=== PATIENT | female | born 1975 | race Caucasian/White ===

== ENCOUNTER → 2017-02-18 | Outpatient (CLI) | payer BC ==
[~2017-02-18] MED LIST: CARI350T OR; CELE100C; CODE30TA OR; FIORICET OR; LYRI150C; TIZA4TAB OR
--- NOTE | 2017-02-27 02:45 | REP ---
Clinical: Spondylosis. Technique: AP, lateral, flexion/extension, bilateral oblique, and open mouth views of the cervical spine. Findings: Alignment and lordosis maintained. No acute fracture / compression injury or subluxation. A small free osteophyte fragment at the C5-6 level appears chronic. Mild age-related changes include endplate sclerosis with minimal disc space narrowing at the C5-6 and C6-7 levels. Oblique views demonstrate patent neural foramen. Open mouth view demonstrates normal C1-C2 articulation and odontoid process. Impression: Mild age-related degenerative changes as described above. If the patient remains symptomatic consider MRI for further investigation. Signed by Galileo Galvan MD 02/27/2017 02:36 A
== END ==
LOC: M WUC 09:59
PROVIDERS: ATTEND Physician Assistant
DX: S16.1XXA Strain of muscle, fascia and tendon at neck level, initial encounter (principal); Y92.9 Unspecified place or not applicable; Y93.9 Activity, unspecified; Y99.8 Other external cause status; X58.XXXA Exposure to other specified factors, initial encounter

== ENCOUNTER → 2017-05-23 | Outpatient (CLI) | payer BC ==
--- NOTE | 2017-05-23 15:24 | REPMRS ---
Patient History The patient states she had a clinical breast exam in April 2017.Family history of breast cancer in maternal grandmother at age 50 or over and breast cancer in paternal grandmother. Digital Mammo Screening Bilat: May 23, 2017 - Exam #: [id number] Bilateral CC and MLO view(s) were taken. Technologist: Samra Mark, Technologist Prior study comparison: April 26, 2016, bilateral digital mammo screening bilat performed at [facility]. April 27, 2015, bilateral digital mammo screening bilat performed at [facility]. FINDINGS: There are scattered fibroglandular densities. There has been no change in the appearance of the mammogram from the prior studies. There is a mild amount of residual fibroglandular tissue which is fairly symmetric. There is no interval development of dominant mass, architectural distortion, or clustered microcalcification suggestive of malignancy. ASSESSMENT: BI-RADS/ACR category 1 mammogram. Negative. Recommendation Routine screening mammogram in 1 year (for women over age 40). This mammogram was interpreted with the aid of an FDA-approved computer-aided dectection system. Electronically Signed By: Wellington Pacheco MD 05/23/17 [id number]
== END ==
LOC: M RAD 12:58
PROVIDERS: ATTEND Registered Nurse
DX: Z12.31 Encounter for screening mammogram for malignant neoplasm of breast (principal); Z80.3 Family history of malignant neoplasm of breast

== ENCOUNTER → 2017-09-23 | Outpatient (REF) | payer BC | LOC: M LAB REF 14:26 | PROVIDERS: ATTEND Physician Assistant | DX: J02.9 Acute pharyngitis, unspecified (principal) ==

== ENCOUNTER → 2018-05-26 | Outpatient (CLI) | payer OTHER, BC, SELFPAY | LOC: M RAD 08:50 | DX: Z12.31 Encounter for screening mammogram for malignant neoplasm of breast (principal) | CPT/HCPCS: 77067 ==

== ENCOUNTER → 2019-05-26 | Outpatient (REF) | payer OTHER ==
[2019-05-27 11:29] LABS: RUBELLA IgG QUALITATIVE IMMUNE (IMMUNE)
[2019-05-28 14:08] LABS: MUMPS VIRUS IgG ANTIBODY 9.8 AU/mL (Immune >10.9); RUBEOLA IgG ANTIBODY 52.2 AU/mL (Immune >29.9)
== END ==
LOC: M LAB REF 16:59
PROVIDERS: ATTEND Internal Medicine
DX: Z02.1 Encounter for pre-employment examination (principal)

== ENCOUNTER → 2019-06-24 | Outpatient (CLI) | payer OTHER ==
--- NOTE | 2019-06-24 14:42 | REPMRS ---
Patient History The patient states she had a clinical breast exam in 2018. Family history of breast cancer at age 50 or over in maternal grandmother, breast cancer in paternal grandmother. Digital Mammo Screening Bilat: June 24, 2019 - Exam #: [id number] Bilateral CC and MLO view(s) were taken. Technologist: Lou Aburto, Technologist Prior study comparison: May 26, 2018, bilateral digital mammo screening bilat performed at [facility]. May 23, 2017, bilateral digital mammo screening bilat performed at [facility]. April 26, 2016, bilateral digital mammo screening bilat performed at [facility]. FINDINGS: There are scattered fibroglandular densities. There has been no change in the appearance of the mammogram from the prior studies. There is a mild amount of scattered fibroglandular density which is fairly symmetric. There is no interval development of dominant mass, architectural distortion, or grouped microcalcification suggestive of malignancy. 3-D tomosynthesis shows no additional findings. Assessment: BI-RADS/ACR category 1 mammogram. Negative Mammogram. Recommendation Routine screening mammogram of both breasts in 1 year (for women over age 40). This patient's Lifetime Breast Cancer Risk is estimated at 15.8 %. This mammogram was interpreted with the aid of an FDA-approved computer-aided dectection system. Electronically Signed By: Trace Eason MD 06/24/19 [id number]
== END ==
LOC: M RAD 12:51
PROVIDERS: ATTEND Nurse Practitioner Family
DX: Z12.31 Encounter for screening mammogram for malignant neoplasm of breast (principal)

== ENCOUNTER → 2019-12-10 | Outpatient (REF) | payer OTHER ==
[2019-12-10 22:16] LABS: INFLUENZA A AMPLIFICATION POSITIVE (NEGATIVE); INFLUENZA B AMPLIFICATION NEGATIVE (NEGATIVE)
== END ==
LOC: M LAB REF 08:38
PROVIDERS: ATTEND Physician Assistant
DX: J11.1 Influenza due to unidentified influenza virus with other respiratory manifestations (principal)

== ENCOUNTER → 2020-08-09 | Outpatient (CLI) | payer OTHER ==
--- NOTE | 2020-08-09 11:15 | REPMRS ---
Patient History The patient states she had a clinical breast exam in July 2020. Family history of breast cancer at age 50 or over in maternal grandmother, breast cancer in paternal grandmother. Took hormonal contraceptives for 5 years. Digital Woman Screen Mammo: August 09, 2020 - Exam #: [id number] Bilateral CC and MLO view(s) were taken. Technologist: Lou Aburto, Technologist Prior study comparison: June 24, 2019, bilateral digital mammo screening bilat, performed at [facility]. May 26, 2018, bilateral digital mammo screening bilat, performed at [facility]. May 23, 2017, bilateral digital mammo screening bilat, performed at [facility]. FINDINGS: There are scattered fibroglandular densities. The Volpara volumetric breast density category is:B. There has been no change in the appearance of the mammogram from the prior studies. There is a mild amount of scattered fibroglandular density which is fairly symmetric. There is no interval development of dominant mass, architectural distortion, or grouped microcalcification suggestive of malignancy. 3-D tomosynthesis shows no additional findings. Assessment: BI-RADS/ACR category 1 mammogram. Negative Mammogram. Recommendation Routine screening mammogram of both breasts in 1 year (for women over age 40). This patient's Lifetime Breast Cancer Risk is estimated at 15.6 %. This mammogram was interpreted with the aid of an FDA-approved computer-aided dectection system. Electronically Signed By: Trace Eason MD 08/09/20 [id number]
== END ==
LOC: M WHC 10:06
PROVIDERS: ATTEND Nurse Practitioner Family
DX: Z12.31 Encounter for screening mammogram for malignant neoplasm of breast (principal)

== ENCOUNTER → 2020-10-04 | Outpatient (CLI) | payer SELFPAY | LOC: M LABSMTC 13:51 | PROVIDERS: ATTEND Pediatrics | DX: Z11.59 Encounter for screening for other viral diseases (principal) ==

== ENCOUNTER → 2021-08-10 | Outpatient (CLI) | payer OTHER ==
--- NOTE | 2021-08-10 08:50 | REPMRS ---
Patient History The patient states she has not had a clinical breast exam in over a year. Family history of breast cancer at age 50 or over in maternal grandmother, breast cancer in paternal grandmother. Took hormonal contraceptives for 5 years. Tomosynthesis is performed. Volpara breast density is b. JagdishMyra lifetime risk of breast cancer 15.4%. No breast complaints today Patient signed the MRS sheet 1st vaccine 12/23/20-left arm-Moderna 2nd vaccine 01/20/21-left arm Priors on PACS Patient Identification Verified Patient denied Digital Woman Screen Mammo: August 10, 2021 - Exam #: [id number] Bilateral CC and MLO view(s) were taken. Technologist: Ember Bautista, Miguel Angelologist Prior study comparison: August 09, 2020, bilateral digital woman screen mammo performed at [facility]. June 24, 2019, bilateral digital mammo screening bilat, performed at [facility]. FINDINGS: The breast tissue is heterogeneously dense. This may lower the sensitivity of mammography. There has been no change in the appearance of the mammogram from the prior studies. There is a moderate amount of residual fibroglandular tissue which is fairly symmetric. There is no interval development of dominant mass, areas of architectural distortion, or clustered microcalcification typical of malignancy. Assessment: BI-RADS/ACR category 1 mammogram. Negative Mammogram. Recommendation Routine screening mammogram in 1 year (for women over age 40). This mammogram was interpreted with the aid of an FDA-approved computer-aided dectection system. Electronically Signed By: Wellington Pacheco MD 08/10/21 [id number]
== END ==
LOC: M WHC 07:12
PROVIDERS: ATTEND Internal Medicine
DX: Z12.31 Encounter for screening mammogram for malignant neoplasm of breast (principal); Z80.3 Family history of malignant neoplasm of breast; Z92.0 Personal history of contraception

== ENCOUNTER → 2021-09-29 | Outpatient (REF) | payer OTHER | LOC: M LAB REF 12:06 | PROVIDERS: ATTEND Physician Assistant | DX: R05.9 Cough, unspecified (principal); R50.9 Fever, unspecified ==

== ENCOUNTER 2022-01-21 12:30 | Emergency (ER) | payer OTHER ==
[~2022-01-21] VITALS: Ht 149.9 cm; Wt 73.3 kg
[2022-01-21 12:32] VITALS: BP 136/75
[2022-01-21] MEDS ORDERED: HYDR-643 (12:41)
[2022-01-21] MEDS ORDERED: NAPR-885 (12:41)
[2022-01-21] MEDS ORDERED: OMEP40CA5 (12:41)
[2022-01-21] MEDS ORDERED: NEUR300C PO (13:26)
[2022-01-21] MEDS ORDERED: ACET-897 PO (13:26)
== END 2022-01-21 13:58 | disposition home or self-care (01) ==
LOC: M ED 13:41
DX: M54.41 Lumbago with sciatica, right side (principal); F33.9 Major depressive disorder, recurrent, unspecified; F41.9 Anxiety disorder, unspecified; K21.9 Gastro-esophageal reflux disease without esophagitis; Z79.899 Other long term (current) drug therapy

== ENCOUNTER → 2022-07-11 | Outpatient (REF) | payer OTHER ==
[~2022-07-11] MED LIST changes: +ACET-897 PO; +HYDR-643; +NAPR-885; +NEUR300C PO; +OMEP40CA5
[2022-07-11 21:56] LABS: APPEARANCE, URINE MANUAL CLEAR (CLEAR); COLOR, URINE MANUAL YELLOW (YELLOW); PH,URINE MAN 5.5 UNITS (5.0 - 7.0)
[2022-07-11 21:57] LABS: BILIRUBIN, URINE MANUAL NEGATIVE (NEGATIVE); BLOOD URINE MANUAL NEGATIVE (NEGATIVE); GLUCOSE, URINE (UA) MANUAL NEGATIVE (NEGATIVE); KETONE, URINE MANUAL NEGATIVE (NEGATIVE); LEUKOCYTE ESTERASE, URINE MAN NEGATIVE (NEGATIVE); NITRITE, URINE MANUAL NEGATIVE (NEGATIVE); PROTEIN, URINE MANUAL NEGATIVE (NEGATIVE); UROBILINOGEN, URINE MANUAL NORMAL (NORMAL)
== END ==
LOC: M LAB REF 21:26
PROVIDERS: ATTEND Physician Assistant
DX: N39.0 Urinary tract infection, site not specified (principal)

== ENCOUNTER → 2022-08-13 | Outpatient (CLI) | payer OTHER | LOC: M WHC 07:41 | PROVIDERS: ATTEND Internal Medicine | DX: Z12.31 Encounter for screening mammogram for malignant neoplasm of breast (principal) ==

== ENCOUNTER → 2022-11-29 | Outpatient (CLI) | payer BC, MEDICAID, OTHER ==
[~2022-11-29] MED LIST changes: +CETI-24; +GABA-282
== END ==
LOC: M LABSMTC 09:45
PROVIDERS: ATTEND Anesthesiology
DX: Z01.812 Encounter for preprocedural laboratory examination (principal); Z20.822 Contact with and (suspected) exposure to COVID-19

== ENCOUNTER 2022-12-04 06:55 | Day surgery (SDC) | payer OTHER ==
[~2022-12-04] VITALS: Ht 149.9 cm; Wt 75.7 kg
[~2022-12-04 06:55] MED LIST changes: +NS 1,000 ML IV ONE
[2022-12-04] MEDS ORDERED: propofoL 200 MG/20 ML VIAL As Ordered ONE (08:42)
[2022-12-04] MEDS ORDERED: LIDOCAINE 2% 100MG/5ML SDV (FOR ANES.) As Ordered ONE (08:42)
[2022-12-04 09:28] VITALS: BP 121/73
== END 2022-12-04 10:02 | disposition home or self-care (01) ==
LOC: M OPP 06:55
PROVIDERS: ATTEND Internal Medicine Gastroenterology
DX: Z12.11 Encounter for screening for malignant neoplasm of colon (principal); Z80.0 Family history of malignant neoplasm of digestive organs; K63.5 Polyp of colon; K64.4 Residual hemorrhoidal skin tags; K64.8 Other hemorrhoids; F41.9 Anxiety disorder, unspecified; K50.90 Crohn's disease, unspecified, without complications; Z79.1 Long term (current) use of non-steroidal anti-inflammatories (NSAID); Z79.891 Long term (current) use of opiate analgesic; Z79.899 Other long term (current) drug therapy; Z80.3 Family history of malignant neoplasm of breast

== ENCOUNTER → 2023-01-26 | Outpatient (CLI) | payer OTHER ==
[~2023-01-26] MED LIST changes: -NS 1,000 ML IV ONE
== END ==
LOC: M EKG 13:55
PROVIDERS: ATTEND Physician Assistant Medical
DX: R00.2 Palpitations (principal)

== ENCOUNTER → 2023-07-17 | Outpatient (REF) | payer OTHER | LOC: M LAB REF 22:17 | PROVIDERS: ATTEND Physician Assistant | DX: B34.9 Viral infection, unspecified (principal) ==

== ENCOUNTER → 2024-07-14 | Outpatient (CLI) | payer OTHER | LOC: M WHC 13:53 | PROVIDERS: ATTEND Internal Medicine | DX: Z12.31 Encounter for screening mammogram for malignant neoplasm of breast (principal) ==

== ENCOUNTER → 2024-07-24 | Outpatient (CLI) | payer OTHER | LOC: M SOG 08:18 | PROVIDERS: ATTEND Physician Assistant | DX: M19.031 Primary osteoarthritis, right wrist (principal) ==

== ENCOUNTER → 2024-08-11 | Outpatient (CLI) | payer OTHER ==
[~2024-08-11] MED LIST changes: +GABA-1172; -GABA-282
== END ==
LOC: M RAD 06:07
PROVIDERS: ATTEND Internal Medicine
DX: R74.8 Abnormal levels of other serum enzymes (principal); K76.0 Fatty (change of) liver, not elsewhere classified

== ENCOUNTER 2025-06-25 06:47 | Day surgery (SDC) | payer OTHER ==
[~2025-06-25] VITALS: Ht 149.9 cm; Wt 76.2 kg
[~2025-06-25 06:47] MED LIST changes: +ONETAB35 PO
[2025-06-25] MEDS: LR 1,000 ML IV SCH (07:53)
[2025-06-25] MEDS ORDERED: LIDOCAINE 2% 100 MG/5 ML SDV (FOR ANES.) As Ordered ONE (08:07)
[2025-06-25] MEDS ORDERED: MIDAZOLAM INJ 2 MG/2 ML VIAL As Ordered ONE (08:07)
[2025-06-25] MEDS ORDERED: ONDANSETRON 4MG 2ML VIAL As Ordered ONE (08:59)
[2025-06-25] MEDS ORDERED: dexAMETHasone 4 MG/ML 1 ML VIAL As Ordered ONE (08:59)
[2025-06-25] MEDS ORDERED: ACETAMINOPHEN 1000MG/100ML IV BAG As Ordered ONE (09:03)
[2025-06-25] MEDS ORDERED: KETOROLAC 30 MG/ML 1 ML VIAL As Ordered ONE (09:03)
[2025-06-25] MEDS ORDERED: ONDANSETRON 4MG 2ML VIAL IV PRN (09:40)
[2025-06-25 10:45] VITALS: BP 122/59; TEMP 96.9; O2SAT 96
== END 2025-06-25 10:57 | disposition home or self-care (01) ==
LOC: M SDC 06:47
PROVIDERS: ATTEND Orthopaedic Surgery Hand Surgery
DX: G56.01 Carpal tunnel syndrome, right upper limb (principal); M65.331 Trigger finger, right middle finger; K50.90 Crohn's disease, unspecified, without complications; Z79.899 Other long term (current) drug therapy; F17.210 Nicotine dependence, cigarettes, uncomplicated
CPT/HCPCS: 26055; 29848; J0131; J0665; J1100; J1885; J2250; J2405; J3010

== ENCOUNTER → 2025-08-06 | Outpatient (CLI) | payer OTHER | LOC: M WHC 14:53 | PROVIDERS: ATTEND Internal Medicine | DX: Z12.31 Encounter for screening mammogram for malignant neoplasm of breast (principal); R92.323 Mammographic fibroglandular density, bilateral breasts ==

== ENCOUNTER → 2025-08-13 | Day surgery (SDC) | payer OTHER ==
[~2025-08-13] VITALS: Ht 149.9 cm; Wt 77.2 kg
[~2025-08-13] MED LIST changes: +KETOROLAC 30 MG/ML 1 ML VIAL As Ordered ONE; +LIDOCAINE 2% 100 MG/5 ML SDV (FOR ANES.) As Ordered ONE; +ROSU20TA86 PO; +TRIA1CR80 TOP
[2025-08-13] MEDS: PERCOCET 5MG/325MG TAB PO ONE (15:07)
[2025-08-13 15:49] VITALS: BP 131/69; TEMP 97.7; O2SAT 98
== END | disposition home or self-care (01) ==
LOC: M SDC 10:15
PROVIDERS: ATTEND Orthopaedic Surgery Hand Surgery
DX: G56.02 Carpal tunnel syndrome, left upper limb (principal); F17.210 Nicotine dependence, cigarettes, uncomplicated; K50.90 Crohn's disease, unspecified, without complications; Z79.899 Other long term (current) drug therapy
CPT/HCPCS: 29848; J0665; J1885; J3010